=== PATIENT | female | born 1960 | race Two or more races ===

== ENCOUNTER 2018-09-09 07:10 | Outpatient (CLI) | payer OTHER | END 2018-09-09 07:15 | disposition home or self-care (01) | LOC: EKG 07:10 | DX: I10 Essential (primary) hypertension (principal) ==

== ENCOUNTER 2018-10-08 11:09 | Outpatient (CLI) | payer OTHER | END 2018-10-08 13:26 | disposition home or self-care (01) | LOC: LAB 11:09 | DX: N30.00 Acute cystitis without hematuria (principal); R31.0 Gross hematuria ==